=== PATIENT | male | born 1980 | race Caucasian/White ===

== ENCOUNTER 2017-02-21 12:00 | Inpatient (IN) | payer OTHER ==
--- NOTE | ~2017-02-21 | PN ---
Unit #: [id number] #: [id number] Patient: MATTI GARCIA [id number] [facility] [address] [place] [address] [id number] MR#: [id number] NAME: MATTI GARCIA ROOM: 81 Age: 37 Sex: M Admission Date: 02/21/2017 : 1980 Attending Physician: Ugo Martinez M.D. Admitting Physician: Ugo Martinez M.D. Primary Care Physician: Primary Care Physician Carolyn WALDRON PROGRESS NOTES DATE 02/23/2017 DISCUSSION The patient seems to be in brighter spirits today, and his withdrawal symptoms seem to be mitigating. He is expressing interest in residential chemical dependence treatment upon his discharge from this facility. Dictated by... Ugo Martinez M.D. CB/bzg TD: 02/23/2017 14:34 JOB #: [id number] [facility] PROGRESS NOTES Page 1 of 1 X Ugo Martinez MD PROGRESS NOTE
--- NOTE | ~2017-02-21 | HP ---
Unit #: [id number] #: [id number] Patient: MATTI GARCIA [id number] [facility] [address] [place] [address] [id number] MR#: [id number] NAME: MATTI GARCIA ROOM: P181 Age: Sex: M Admission Date: 02/21/2017 : 1980 Attending Physician: Ugo Martinez M.D. Admitting Physician: Ugo Martinez M.D. Primary Care Physician: No Primary Care Physician HISTORY AND PHYSICAL HISTORY OF PRESENT ILLNESS Matti is a 37-year-old admitted to [facility] because of his polysubstance abuse to include snorting heroin and methamphetamine. PAST MEDICAL HISTORY Long history of illicit substance abuse to include snorting heroin and methamphetamine. PAST SURGICAL HISTORY Bilateral arthroscopic knees. ALLERGIES Penicillin. SOCIAL HISTORY Smokes one pack per day. Denies alcohol. Admits to a history of illicit substance abuse. FAMILY HISTORY Medically noncontributory. REVIEW OF SYSTEMS CONSTITUTIONAL: No fever or chills. HEENT: Denies any sore throat, ear pain or runny nose. CARDIOVASCULAR: Denies chest pain, irregular heart rhythm or palpitations. CHEST: Denies shortness of breath or cough. No hemoptysis. GASTROINTESTINAL: Denies nausea, vomiting, diarrhea or chronic constipation. ENDOCRINE: Denies history of increased thirst or urination. No recent significant weight loss or gain. GENITOURINARY: Denies dysuria, frequency, or hematuria. SKIN: Denies any rashes. HEMATOLOGIC: Denies history of increased bleeding or bruising. MUSCULOSKELETAL: Denies any hot, swollen joints. No generalized muscle pain. NEUROLOGIC: Denies problems with vision or speech. No frequent, severe headaches. No numbness, tingling or weakness in any extremities. Denies loss of bladder or bowel control. CURRENT MEDICATIONS Detox protocol. PHYSICAL EXAMINATION Unit #: [id number] #: [id number] Patient: MATTI GARCIA GENERAL: Alert, well nourished, very pleasant, young man in no apparent distress. VITAL SIGNS: Blood pressure 112/72, heart rate 94, respirations 16, temperature 98.6, weight 199 pounds, and height 6 feet, 2 inches. SKIN: Warm and dry without rash or lesion. HEENT: Normocephalic. TMs not viewed. Oral and nasal passages clear. Conjunctivae clear. PERRLA. EOMs intact. NECK: Supple without lymphadenopathy or thyromegaly. HEART: Regular rate and rhythm without murmur. LUNGS: Clear. ABDOMEN: Soft, nontender. : Not done. EXTREMITIES: No evidence of cyanosis, clubbing or edema. Moves all without focal deficit. NEUROLOGICAL: Grossly within normal limits. Cranial Nerves: II: Visual marley are intact. III, IV AND : Extraocular movements are intact. Pupils are equal, round and reactive to light. V: Facial sensation is grossly normal. VII: Facial movements and expression are normal. VIII: Auditory acuity grossly intact. IX, X: Uvula is midline. Phonation is normal. XI: Patient shrugs shoulders and turns head normally. XII: Tongue protrudes in the midline. Sensory and Motor Function: Sensory and motor sensation is grossly normal. Motor: moves all extremities well. Coordination: Gait is normal. Deep Tendon Reflexes: Intact. IMPRESSION Psychiatric admission. RECOMMENDATIONS PSYCHIATRIC: Per psychiatrist. MEDICAL: I see no contraindication to participating in facility's activities. MEDICAL PROGNOSIS Good. MEDICAL CONDITION Stable. Dictated by... Vivian Mares P.A.-C. for Juan José Gomez/tabatha TD: 02/22/2017 09:59 JOB #: [id number] Unit #: [id number] #: [id number] Patient: MATTI GARCIA HISTORY AND PHYSICAL Page 1 of 1 X Vivian Mares HISTORY AND PHYSICAL
--- NOTE | ~2017-02-21 | DS ---
Unit #: [id number] #: [id number] Patient: MATTI GARCIA [id number] [facility] [address] [place] [address] [id number] MR#: [id number] NAME: MATTI GARCIA ROOM: [facility] Age: 37 Sex: M Admission Date: 02/21/2017 : 1980 Discharge Date: 02/24/2017 Attending Physician: Ugo Martinez M.D. DISCHARGE SUMMARY REASON FOR ADMISSION The patient is a 37-year-old white male, admitted to the [address] [place] [address] opioid detox. HOSPITAL COURSE The patient was admitted to the [address] [place] [address] and placed on routine detoxification protocol for opioids. His stay in the hospital was brief and uneventful, although his participation was less than optimal. His detox was a smooth. By 02/24/2017, he requested discharge and it was so ordered. FINAL DIAGNOSES 1. Opioid use disorder. 2. Methamphetamine use disorder. DISPOSITION ON DISCHARGE The patient is discharged on no medications. No dietary. Physical restrictions were based on the patient discharge. FOLLOWUP Follow up will take place through the auspices of community mental health resources. PROGNOSIS The patient's prognosis is considered fair. Dictated by... Ugo Martinez M.D. CB/jos TD: 02/24/2017 17:36 JOB #: [id number] Unit #: [id number] #: [id number] Patient: MATTI GARCIA DISCHARGE SUMMARY Page 1 of 1 X Ugo Martinez MD X DISCHARGE SUMMARY
--- NOTE | ~2017-02-21 | PN ---
Unit #: [id number] #: [id number] Patient: MATTI GARCIA [id number] [facility] [address] [place] [address] [id number] MR#: [id number] NAME: MATTI GARCIA ROOM: 81 Age: 37 Sex: M Admission Date: 02/21/2017 : 1980 Attending Physician: Ugo Martinez M.D. Admitting Physician: Ugo Martinez M.D. Primary Care Physician: Primary Care Physician Carolyn WALDRON PROGRESS NOTES DATE 02/22/2017 DISCUSSION The patient is in significant physical distress related to opioid withdrawal and has been able to participate to any significant degree within the therapeutic milieu today. I have encouraged him to avail himself with prescribed p.r.n.s and to increase his participation once he is able to do. He continues to express interest in residential chemical dependence treatment was discharged from this facility. Dictated by... Ugo Martinez M.D. CB/abdelrahman TD: 02/23/2017 06:16 JOB #: [id number] [facility] NOTES Page 1 of 1 X Ugo Martinez MD PROGRESS NOTE
--- NOTE | ~2017-02-21 | PA ---
Unit #: [id number] #: [id number] Patient: MATTI GARCIA [id number] [place] [address] [id number] I MR#: [id number] NAME: MATTI GARCIA ROOM: 81 Age: 37 Sex: M Admission Date: 02/21/2017 : 1980 Date of Assessment: 02/21/2017 Attending Physician: Ugo Martinez M.D. Admitting Physician: Ugo Martinez M.D. Primary Care Physician: Primary Care Physician No PSYCHIATRIC ASSESSMENT IDENTIFYING INFORMATION The patient is a 37-year-old single white male admitted to the [address] [place] [address] for opioid and methamphetamine detox. CHIEF COMPLAINT Need to detox. INFORMANT(S) Patient, reliability is good. HISTORY OF PRESENT ILLNESS The patient is a 37-year-old single male with long history of opioid and methamphetamine dependence. He has been in treatment at the [facility] before. He reports that he wishes to cease his use of these substances. He denies any history of intravenous substance use. The patient is currently living with a friend but has been homeless for some time. He has a history of having served 39 months in intermediate on an aggravated assault charge. The patient reports no other psychiatric history and denies abuse of psychoactive substances apart from those named already. 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 PAST PSYCHIATRIC HISTORY None apart from the aforementioned treatment for substance abuse at the [facility]. PAST MEDICAL HISTORY Noncontributory. MEDICATIONS None. ALLERGIES None. FAMILY HISTORY Noncontributory. SOCIAL HISTORY The patient is currently homeless and living with friend. He is not presently employed. His legal status is as noted previously. He is a smoker. Unit #: [id number] #: [id number] Patient: MATTI GARCIA MENTAL STATUS EXAMINATION Examination at this time reveals the patient to be a well-developed well-nourished white male appearing stated age. He is in no apparent physical distress at the time of the examination. She is awake, alert, and oriented in all spheres. His mood is euthymic, his affect congruent. Speech is generally well-coherent. No gross deficits in memory or cognition noted. Intelligence is judged to be in the average range based on fund of knowledge. The patient is cooperative throughout the interview. He is currently denying suicidal or homicidal ideation or psychotic features. Judgment and insight appear to be intact. ASSETS AND LIABILITIES The patient's assets: Motivation for change. Liabilities: Lack of resources. DIAGNOSTIC IMPRESSION 1. Opioid use disorder. 2. Methamphetamine use disorder. TREATMENT PLAN The patient remains hospitalized for safety and stabilization. Routine detox protocol for opioids has been initiated, and I will ask the patient's social welfare research worker to see him regarding post-discharge treatment options as he is expressing interest in residential chemical dependence treatment. This complicating factor, however, may be the fact recently canceled a planned admission to [facility] in [place] and missed his ride to [facility] in [place] yesterday. Dictated by... Ugo Martinez M.D. Marian TD: 02/22/2017 07:01 JOB #: [id number] PSYCHIATRIC ASSESSMENT Page 1 of 1 X Ugo Martinez MD X PSYCHIATRIC ASSESSMENT
[2017-02-22 09:50] LABS: URINE APPEARANCE CLEAR; URINE BILIRUBIN NEG (NEG); URINE BLOOD NEG (NEG); URINE COLOR YELLOW; URINE GLUCOSE NEG (NEG); URINE KETONE NEG (NEG); URINE LEUKOCYTE ESTERASE TRACE (NEG); URINE NITRATE NEG (NEG); URINE PH 6.5 (5-8); URINE PROTEIN NEG (NEG); URINE SPECIFIC GRAVITY 1.011 (1.003-1.035)
[2017-02-22 09:51] LABS: BASOPHIL% 0.5 % (0-2.5); EOSINOPHIL# 0.4 X10e3 (0-0.7); EOSINOPHIL% 4.7 % (0.0-7.0); HEMATOCRIT 40.9 % (38.0-50.0); HEMOGLOBIN 13.4 gm/dL (13.0-16.0); LYMPHOCYTE# 2.8 X10e3 (1.0-3.5); LYMPHOCYTE% 37.6 % (17.0-45.0); MEAN CELL VOLUME 87.1 FL (83-96); MEAN CORPUSCULAR HEMOGLOBIN 28.6 PG (28-34); MEAN CORPUSCULAR HGB CONC 32.9 g/dL (30-36); MEAN PLATELET VOLUME 9.2 FL (6.5-11.5); MONOCYTE# 0.6 X10e3 (0-1.0); MONOCYTE% 8.5 % (3.0-12.0); NEUTROPHIL# 3.7 X10e3 (1.5-7.1); NEUTROPHIL% 48.7 % (40-75); PLATELET COUNT 199 X10e3 (140-420); RED BLOOD COUNT 4.69 X10e (3.90-5.60); RED CELL DISTRIBUTION WIDTH 13.8 % (11.0-15.5); WHITE BLOOD COUNT 7.5 X10e3 (4.0-10.5)
[2017-02-22 09:54] LABS: DIFF IND NO
[2017-02-22 09:56] LABS: URBCS1 AUWI 0-2 /[HPF] (0-2); URINE BACTERIA AUWI NEG (NEGATIVE); URINE SQUAMOUS EPITHELIAL CELL NONE SEEN /[HPF]; UWBCS1 AUWI 0-2 (0-5)
[2017-02-22 09:58] LABS: ALBUMIN SERUM 3.7 g/dL (3.5-5.0); BILIRUBIN,TOTAL 0.4 mg/dL (0.2-2.0); BUN/CREATININE RATIO 14.44; CALCIUM SERUM 8.9 mg/dL (8.4-10.2); CREATININE SERUM 0.9 mg/dL (0.6-1.4); GLOM FILT RATE Estimated 109.5 mL/min (>60); POTASSIUM 4.3 mmol/L (3.5-5.1)
[2017-02-22 10:19] LABS: AMPHETAMINE POS (NEG); BARBITURATES NEG (NEG); BENZODIAZEPINES NEG (NEG); COCAINE NEG (NEG); MARIJUANA NEG (NEG); OPIATES NEG (NEG); TRICYCLIC ANTIDEPRESSANTS NEG (NEG); U METHADONE NEG (NEG)
== END 2017-02-24 13:00 | disposition home or self-care (01) | DRG 897 ==
LOC: P1E 13:57
PROVIDERS: Specialist
PROC: HZ2ZZZZ Detoxification Services for Substance Abuse Treatment (ICD-10-PCS; principal; 2017-02-21)
DX: F11.20 Opioid dependence, uncomplicated (principal); F15.20 Other stimulant dependence, uncomplicated; Z88.0 Allergy status to penicillin; F17.210 Nicotine dependence, cigarettes, uncomplicated
CPT/HCPCS: 80053; 80307; 81003; 85025; 86592